=== PATIENT | female | born 1995 | race Caucasian/White ===

== ENCOUNTER 2024-05-19 21:59 | Emergency (ER) | payer BC, SELFPAY ==
[2024-05-19 22:01] VITALS: BP 117/69
[2024-05-19] MEDS: NSS 1000 IV (22:44)
[2024-05-19] MEDS: REGLAN 10 MG IV (22:44)
--- NOTE | 2024-05-19 23:08 | ED.GENMED ---
History of Present Illness
General
Chief Complaint: Abdominal Symptoms
Source: patient
Exam Limitations: none
Time Seen by Provider: 05/19/24 22:30
History of Present Illness
History of Present Illness:
This is a 28 year old female that comes in with c/o nausea and vomiting. States that she is 8 week and today she has been nauseated and vomiting at least 6 times. States that she felt SOB with the vomiting and a slight headache. Denies any
fever, chills, chest pain, diarrhea, dizziness, urinary burning or any vaginal bleeding.
Past History
Past History
ED Past Medical History: None; Negative Asthma, HTN, Hypercholesterolemia or NIDDM
ED Past Surgical History: Orthopedic (Left ACL repair)
Social History
Tobacco: Non-smoker
Alcohol: Occasional (None at this time due to )
Personal:
Living: with family
Review of Systems
Review of Systems
All Other Systems: ROS reviewed and negative except as documented in HPI and ROS
Constitutional: Reports no symptoms; Denies fever or chills
EENT: Reports no symptoms
Respiratory: Reports trouble breathing (Slight with vomiting); Denies cough
Cardiac: Reports no symptoms; Denies chest pain
ABD/GI: Reports nausea and vomiting; Denies abdominal pain or diarrhea
: Reports no symptoms; Denies dysuria, frequency or urgency
Musculoskeletal: Reports no symptoms
Skin: Reports no symptoms
Neurological: Reports headache (Slight ); Denies dizzy
Psychiatric: Reports no symptoms
Phy Exam
General Physical Exam
General Presentation: well appearing and no apparent distress
General age: appears stated age
General Skin: warm and dry
General Habitus: normal
General Mental: alert
General Hydration: appears well hydrated
ENT Exam
ENT Exam: TM's normal, pharynx normal and neck supple
Eye Exam
Eye Exam: EOMI
Cardiovascular Exam
Cardiovascular Exam: regular rate/rhythm, no edema, no murmur and normal peripheral pulses
Pulmonary Exam
Pulmonary Exam: lungs clear, no respiratory distress, no rales, chest non tender, no crackles, no rhonchi, no wheezing and no cough
Gastrointestinal Exam
Gastrointestinal Exam: normal bowel sounds, non tender, soft, no organomegaly, no pulsatile mass and non distended
Musculoskeletal Exam
Musculoskeletal Exam: full ROM and no edema
Skin Exam
Skin Exam: normal color, warm/dry, no rash and no petechia
Psychiatric Exam
Psychiatric Exam: normal mood/affect
Course
Orders/Labs/Results
Orders:
Orders
05/19/24 22:37
0.9% Sodium Chloride 1000 ml [Nss] 1,000 ml IV BOLUS
Metoclopramide [Reglan] 10 mg IV NOW STA
Vital Signs
Initial and Last Documented VS:
Initial Vital Signs
Temp Pulse Resp BP Pulse Ox
98.6 F 58 16 117/69 99
05/19/24 22:01 05/19/24 22:01 05/19/24 22:01 05/19/24 22:01 05/19/24 22:01
Last Documented Vital Signs
Temp Pulse Resp BP Pulse Ox
98.6 F 58 16 117/69 99
05/19/24 22:01 05/19/24 22:01 05/19/24 22:01 05/19/24 22:01 05/19/24 22:01
MDM/Problems Addressed
Differential Diagnosis Includes:
Hyperemesis Gravidarum
MDM/Problems Addressed:
This is a 28 year old female that comes in with c/o vomiting. States that she has been vomiting all day.
Will give IV fluids and Reglan.
Back into see patient. States that she was feeling better. Patient given water and crackers at this time. States that she felt she could go home. Will discharge home.
Chronic conditions affecting care:
NA
Acute Exacerbation and/or Progression of Chronic Illness:
NA
*Pulse Oximetry
Patient hypoxic: no
*EKG
Interpreted by ED Provider?: NA
Rate: EKG- N/A
*[employer] Interpretation
Rate: [employer]- N/A
*Critical Care Note
Total Time (30-74mins, 75-104mins- exclusive of procedures): Not Applicable
ED Attending Note
-
Portions of this chart may have been created with voice recognition software.� Occasional wrong word or��sound alike� substitutions may have occurred due to the inherent limitations of voice recognition software.
Discharge Plan
Departure
Patient Disposition: Home (Routine Discharge)
Date of Disposition: 05/20/24
Time of Disposition: 00:28
Patient with high blood pressure during this ER visit?: No
Condition: Good
Covid-19: Not Applicable
Discharge Problem:
Vomiting during
Instructions: Hyperemesis Gravidarum (DC)
Prescriptions:
New
metoclopramide HCl [Reglan] 10 mg tablet
10 mg PO Q8HPRN PRN (Reason: nausea and vomiting) Qty: 9 0RF
Referrals:
NONE,* [Family Provider] -
Activity Restrictions/Additional Instructions:
As discussed, you have been given IV fluids here and Antiemetic medication. Please try and increase your water intake to 8-8oz glasses daily. Discus with your [facility] medication to use to help with the nausea/vomiting. You have been given a
prescription for Reglan which you can take to help with the nausea/vomiting. Follow up with the the [facility] for recheck. IF YOU HAVE ANY OTHER CONCERNS PLEASE RETURN TO THE EMERGENCY ROOM.
Interventions
Interventions:
*General Assessment Last Done: 05/19/24 22:01
Discharge Date and Time
Print Language: INDONESIAN
--- NOTE | 2024-05-20 00:30 | EDRN ---
Patient was able to tolerate crackers and water
== END 2024-05-20 00:59 | disposition home or self-care (01) ==
LOC: EMR 21:59
PROVIDERS: EMERGENCY PHYSICIAN Emergency Medicine
DX: O21.9 Vomiting of pregnancy, unspecified (principal); Z3A.08 8 weeks gestation of pregnancy
CPT/HCPCS: 99282; 96374; 96361